=== PATIENT | male | born 1960 | race African-American/Black ===

== ENCOUNTER 2016-10-30 19:19 | Emergency (ER) | payer MEDICAID ==
[~2016-10-30] VITALS: Ht 180.3 cm; Wt 73.0 kg
[~2016-10-30 19:19] MED LIST: DILANTIN; QUET25TA PO
[2016-10-30 21:01] VITALS: BP 169/95
== END 2016-10-31 00:58 | disposition left against medical advice (07) ==
LOC: ER 19:19
DX: S01.412A Laceration without foreign body of left cheek and temporomandibular area, initial encounter (principal); S61.412A Laceration without foreign body of left hand, initial encounter; X58.XXXA Exposure to other specified factors, initial encounter; Y93.89 Activity, other specified; Y99.8 Other external cause status; Y92.89 Other specified places as the place of occurrence of the external cause

== ENCOUNTER 2023-08-27 15:16 | Emergency (ER) | payer MEDICAID, OTHER ==
[~2023-08-27] VITALS: Ht 182.9 cm; Wt 73.0 kg
[2023-08-27 16:11] VITALS: BP 149/92; PULSE 84; RESP 16; TEMP 98.2; O2SAT 99
[2023-08-27] MEDS ORDERED: BACITRACIN ZINC OINT UDPKT TOP ONE (20:15)
[2023-08-27] MEDS ORDERED: LIDOCAINE HCL/PF 1% 10 MG/ML 5ML VIAL INFIL ONE (20:15)
[2023-08-27] MEDS ORDERED: TETANUS, DIPHTHERIA, PERTUSSIS VAC/PF 0.5ML (>10YR OLD) IM ONE ×2 (20:15→22:15)
[2023-08-27] MEDS ORDERED: AMOXICILLIN/POTASSIUM CLAVULANATE 875/125MG TAB PO ONE ×2 (20:15→22:15)
[2023-08-27] MEDS ORDERED: BACITRACIN ZINC OINT UDPKT TOP SCH (22:15)
[2023-08-27] MEDS ORDERED: LIDOCAINE HCL/PF 1% 10 MG/ML 5ML VIAL INFIL SCH (22:15)
[2023-08-27] MEDS ORDERED: SULF1TAB48 MT (23:28)
[2023-08-27] MEDS ORDERED: AMOX1TAB16 MT (23:28)
[2023-08-27] MEDS ORDERED: IBUP-2028 MT (23:28)
[2023-08-27] MEDS ORDERED: KETOROLAC 60MG/2ML VIAL IM ONE (23:45)
== END 2023-08-28 00:03 | disposition home or self-care (01) ==
LOC: ER 15:16
DX: S61.032A Puncture wound without foreign body of left thumb without damage to nail, initial encounter (principal); F12.90 Cannabis use, unspecified, uncomplicated; F10.10 Alcohol abuse, uncomplicated; W54.0XXA Bitten by dog, initial encounter; Y93.89 Activity, other specified; Y92.89 Other specified places as the place of occurrence of the external cause; Y99.8 Other external cause status; Y90.9 Presence of alcohol in blood, level not specified
CPT/HCPCS: 90715; 90471; 99284; 96372; J1885; Z7610 ×3